=== PATIENT | female | born 1990 | race American Indian/Alaskan Native ===

== ENCOUNTER 2019-02-25 18:40 | Emergency (ER) | payer OTHER ==
[2019-02-25 18:53] VITALS: TEMP 98.5
[2019-02-25] MEDS ORDERED: Sodium Chloride 0.9% 1,000 ML IV ONE (20:40)
[2019-02-25 21:00] LABS: BASO # 0.1 K/uL (0.0-0.2); BASO % 0.5 % (0.0-2.0); EOS % 0.1 % (0.0-4.0); HEMOGLOBIN 13.4 g/dL (11.0-16.0); LYMPH # 1.4 K/uL (1.0-4.3); LYMPH % 14.4 % (20.0-40.0); MEAN CELL VOLUME 93.7 fL (81.0-99.0); MEAN CORPUSCULAR HGB CONC 34.1 g/dL (33.0-37.0); MEAN PLATELET VOLUME 9.3 fL (7.2-11.7); MONO # 1.3 K/uL (0.0-0.8); MONO % 13.5 % (0.0-10.0); NEUT # 7.1 K/uL (1.8-7.0); NEUT % 71.5 % (50.0-75.0); RBC 4.19 Mil/uL (3.80-5.20); RED CELL DISTRIBUTION WIDTH 13.4 % (11.5-14.5)
--- NOTE | 2019-02-25 21:00 | C.PDOC ---
History Of Present Illness 28 year old female presents to ED for evaluation s/p syncopizing in the shower last night and this morning. Patient states she had a panic attack when experiencing hand paresthesia and then she lost consciousness. She also complains of right sided headache behind the right eye. Patient is an public aid eligibility assistant at a [employer] and considers herself an anxious person. Patient has a PMHx of sickle cell train, but has no history of anemia or sickle cell crisis. She denies visions changes, head trauma, injury, weakness, and numbness. Time Seen by Provider: 02/25/19 20:27 Chief Complaint (Nursing): Syncope History Per: Patient History/Exam Limitations: no limitations Onset/Duration Of Symptoms: Days (1) Current Symptoms Are (Timing): Still Present Activity At Onset Of Symptoms: Standing Seizure Or Post-ictal Symptoms: None Past Medical History Reviewed: Historical Data, Nursing Documentation, Vital Signs Vital Signs: Last Vital Signs Temp 98.5 F 02/25/19 18:46 Pulse 108 H 02/25/19 18:46 Resp 18 02/25/19 18:46 BP 142/88 02/25/19 18:46 Pulse Ox 100 02/25/19 18:46 - Medical History PMH: Anxiety Other PMH: sickle cell trait Surgical History: No Surg Hx Family History: States: Unknown Family Hx - Social History Hx Alcohol Use: Yes Hx Substance Use: No - Immunization History Hx Tetanus Toxoid Vaccination: Yes Hx Influenza Vaccination: No Hx Pneumococcal Vaccination: No Review Of Systems Constitutional: Negative for: Weakness Eyes: Negative for: Vision Change Neurological: Positive for: Headache (right-side; behind the right eye). Negative for: Weakness, Numbness, Dizziness Physical Exam - Physical Exam Appears: Other (tearful, but cooperative) Skin: Normal Color, Warm, Dry Head: Atraumatic, Normacephalic Eye(s): bilateral: Normal Inspection (no pale conjunctiva) Nose: Other (moderate to severe nasal passage erythema with kissing turbinates, right greater than left) Neck: Normal ROM, Supple Chest: Symmetrical, No Deformity Cardiovascular: Rhythm Regular, No Murmur Respiratory: No Accessory Muscle Use, No Rales, No Rhonchi, No Wheezing Gastrointestinal/Abdominal: Soft, No Tenderness Extremity: Capillary Refill (<2 seconds) Neurological/Psych: Oriented x3, Normal Speech, Normal Cognition, Cerebellar Signs, Normal Motor, Normal Sensation Other Neurological Findings: No Other (facial droop) ED Course And Treatment - Laboratory Results Result Diagrams: 02/25/19 20:53 02/25/19 20:53 ECG: Interpreted By Me, Viewed By Me ECG Rhythm: Sinus Tachycardia ECG Interpretation: Normal Rate From EC O2 Sat by Pulse Oximetry: 100 (in RA) Pulse Ox Interpretation: Normal Progress Note: EKG ordered for patient. Labs orrdered with CMP, CBC, and UA. Patient given IV fluids, Sudafed, Toradol, and Xanax. Medical Decision Making Medical Decision Making: Sinus headache: pseudafed 30-60 mg every 6 hours motrin 400-600 mg every 6 hours Flonase spray 1 spray each nostril every 12 hours until Summer Claritin 10 mg daily- for allergic nasal inflammation many "sinus" cold/headache medicines contain a nasal decongestant. ie- "Tylenol Sinus" Anxiety: Seek outpatient counseling and meds as needed Disposition Doctor Will See Patient In The: Office Counseled Patient/Family Regarding: Studies Performed, Diagnosis - Disposition Referrals: [facility] [Outside] [employer] [facility] [Outside] [facility] [Outside] [place] [facility] [Outside] Viktor Oakes [Medical Doctor] - Disposition: HOME/ ROUTINE Disposition Time: 21:48 Condition: GOOD Additional Instructions: Sinus headache: pseudafed 30-60 mg every 6 hours motrin 400-600 mg every 6 hours Flonase spray 1 spray each nostril every 12 hours until Summer Claritin 10 mg daily- for allergic nasal inflammation many "sinus" cold/headache medicines contain a nasal decongestant. ie- "Tylenol Sinus" Anxiety: Seek outpatient counseling and meds as needed Instructions: Vasovagal Response, Syncope (Fainting) (DC), Sinus Headache (DC) Forms: [employer] (Latvian) - Clinical Impression Clinical Impression: Vasovagal syncope, Sinus headache - Scribe Statement The provider has reviewed the documentation as recorded by the Scribe (Natali Whitley) All medical record entries made by the Scribe were at my direction and personally dictated by me. I have reviewed the chart and agree that the record accurately reflects my personal performance of the history, physical exam, medical decision making, and the department course for this patient. I have also personally directed, reviewed, and agree with the discharge instructions and disposition.
[2019-02-25] MEDS ORDERED: Sodium Chloride 0.9% 1,000 ML ONE (21:01)
[2019-02-25 21:13] LABS: ALB/GLOB RATIO 1.3 (1.0-2.1); ALBUMIN 4.5 g/dL (3.5-5.0); ALT/SGPT 7 U/L (9-52); AST/SGOT 22 U/L (14-36); BLOOD UREA NITROGEN 11 mg/dL (7-17); CALCIUM 9.5 mg/dl (8.6-10.4); GFR NON-AFRICAN AMERICAN > 60; LIPASE 167 U/L (23-300)
[2019-02-25 21:37] LABS: HCG,QUALITATIVE URINE NEGATIVE (NEGATIVE)
[2019-02-25 21:45] LABS: SQUAMOUS EPITHIAL < 1 /hpf (0-5); URINE BILIRUBIN NEGATIVE (NEGATIVE); URINE BLOOD 1+ (NEGATIVE); URINE CLARITY Clear (Clear); URINE COLOR Yellow (YELLOW); URINE GLUCOSE (UA) NORMAL (Normal); URINE LEUKOCYTE ESTERASE NEG Leu/uL (Negative); URINE PROTEIN NEGATIVE (NEGATIVE); URINE UROBILINOGEN NORMAL mg/dL (0.2-1.0)
[2019-02-25 22:23] VITALS: BP 120/80; PULSE 80; RESP 14; O2SAT 99
--- NOTE | 2019-02-27 14:01 | CARD ---
APPROVED REPORT Date of service: 02/25/2019 EKG Measurement Heart [id number] <Conclusion> Sinus tachycardia Otherwise normal ECG
== END 2019-02-25 22:22 | disposition home or self-care (01) ==
LOC: C.ER 18:40
DX: R55 Syncope and collapse (principal); R51 Headache
CPT/HCPCS: 36415; 80053; 81001; 82948; 83690; 84703; 85025; 93005; 96361; 96374; 99285; J1885; J7030